=== PATIENT | female | born 1950 | race Caucasian/White ===

== ENCOUNTER 2016-06-18 13:41 | Emergency (ER) | payer OTHER ==
[2016-06-18 13:48] VITALS: BP 126/74; PULSE 84; TEMP 97.7; BMI 20.9
[2016-06-18] MEDS ORDERED: ACETAMINOPHEN 325 MG TABLET (FP) PO ONE (15:04)
[2016-06-18] MEDS ORDERED: ACETAMINOPHEN 325 MG TABLET (FP) ONE (15:10)
--- NOTE | 2016-06-18 15:11 | PDOC ---
History of Present Illness - General Chief Complaint: Chronic pain Stated Complaint: PAIN Time Seen by Provider: 06/18/16 14:26 History Source: Patient Exam Limitations: No Limitations - History of Present Illness Initial Comments: 06/18/16 15:10 CHIEF COMPLAINT: Rectal pain HISTORY OF PRESENT ILLNESS: This is a 66 year old female with a history of chronic low back pain who presents complaining of three days of rectal pain. She has not had a problem with defecation and reports that she had a normal BM this morning. She has noted "frequent" urination, but no urinary incontinence. She denies lower extremity weakness or numbness. She has chronic low back pain. Vital signs on arrival are unremarkable. PCP is Dr. Acuna. REVIEW OF SYSTEMS: GENERAL/CONSTITUTIONAL: No fevers or chills. No weakness. No weight change. HEAD, EYES, EARS, NOSE AND THROAT: No change in vision. No ear pain or discharge. No sore throat. CARDIOVASCULAR: No chest pain or palpitations. RESPIRATORY: No cough, wheezing, or shortness of breath. GASTROINTESTINAL: Rectal pain. No nausea, vomiting, diarrhea or constipation. GENITOURINARY: No dysuria, frequency, or change in urination. MUSCULOSKELETAL: Chronic low back pain. SKIN: No rash or easy bruising. NEUROLOGIC: No headache, vertigo, loss of consciousness, or loss of sensation. HEMATOLOGIC/LYMPHATIC: No anemia, easy bleeding, or history of blood clots. ALLERGIC/IMMUNOLOGIC: No hives or skin allergy. No latex allergy. PHYSICAL EXAM: GENERAL: The patient is awake, alert, and fully oriented, in no acute distress. ENT: Pupils equal, round and reactive to light, extraocular movements intact, sclera anicteric, conjunctiva clear. Neck supple. LUNGS: Clear to auscultation bilaterally. Normal excursion. No respiratory distress or use of accessory muscles. CV: RRR, S1/S2, no MRG. Cap refill < 2 sec. ABDOMEN: Soft, non-distended, non-tender. EXTREMITIES: Normal range of motion, no edema. NEUROLOGICAL: Normal speech, normal gait. CN II-XII grossly intact. PSYCH: Normal mood, normal affect. SKIN: Warm, dry, normal turgor, no rashes or lesions noted. RECTAL: Normal external exam. No internal masses. Past History - Past Medical History Allergies/Adverse Reactions: Allergies Allergy/AdvReac Type Severity Reaction Status Date / Time No Known Drug Allergies Allergy Verified 06/18/16 13:49 Home Medications: Ambulatory Orders Meloxicam [Mobic -] 15 mg PO DAILY 06/24/14 Hydrocortisone 0.5% Ointment [Hytone 0.5% Ointment -] 1 applic TP QID #1 tube Methylprednisolone [Medrol Dose Deangelo] 4 mg PO ASDIR #21 tablet 04/22/15 Ranitidine HCl [Zantac] 150 mg PO BID #6 tablet 04/22/15 Anemia: No Asthma: No Cancer: No Cardiac Disorders: No CVA: No COPD: No CHF: No Dementia: No Diabetes: No GI Disorders: No Disorders: No HTN: No Hypercholesterolemia: Yes Liver Disease: No Seizures: No Thyroid Disease: No Other medical history: PATIENT DENIES MEDICAL HISTORY - Immunization History Immunization Up to Date: Yes - Psycho/Social/Smoking Cessation Hx Anxiety: No Suicidal Ideation: No Smoking History: Never smoked Have you smoked in the past 12 months: No Hx Alcohol Use: No Drug/Substance Use Hx: No Substance Use Type: None Hx Substance Use Treatment: No *Physical Exam - Vital Signs Last Vital Signs Temp Pulse Resp BP Pulse Ox 97.7 F 84 16 126/74 97 06/18/16 13:45 06/18/16 13:45 06/18/16 13:45 06/18/16 13:45 06/18/16 13:45 Medical Decision Making - Medical Decision Making 06/18/16 15:27 A/P: 66 year old female with rectal pain and chronic low back pain, also complaining of urinary frequency. No neurologic symptoms. -UA/culture -Patient understands that she needs to see GI for further evaluation 06/18/16 17:43 Patient left ED prior to completion of evaluation. *DC/Admit/Observation/Transfer Diagnosis at time of Disposition: Rectal or anal pain - Discharge Dispostion Admit: No - Referrals Referrals: Tanner Maynard MD [Staff Physician] - - Patient Instructions Additional Instructions: -You were seen today for rectal pain, low back pain, and urinary frequency
[2016-06-18 17:06] LABS: URINE APPEARANCE CLEAR; URINE BILIRUBIN NEGATIVE (NEGATIVE); URINE BLOOD NEGATIVE (NEGATIVE); URINE COLOR COLORLESS; URINE GLUCOSE (UA) NEGATIVE (NEGATIVE); URINE KETONE NEGATIVE (NEGATIVE); URINE LEUK ESTERASE NEGATIVE (NEGATIVE); URINE NITRITE NEGATIVE (NEGATIVE); URINE PROTEIN NEGATIVE (NEGATIVE); URINE UROBILINOGEN NEGATIVE E.U./dl (0.2-1.0)
== END 2016-06-18 18:52 | disposition left against medical advice (07) ==
LOC: JERFT 13:41
DX: Z53.21 Procedure and treatment not carried out due to patient leaving prior to being seen by health care provider (principal); K62.89 Other specified diseases of anus and rectum
CPT/HCPCS: 81003; 87086; 99281-25